=== PATIENT | female | born 1955 | race Caucasian/White ===

== ENCOUNTER 2019-02-17 08:05 | Emergency (ER) | payer OTHER ==
--- NOTE | 2019-02-17 08:31 | EDM.PDOC ---
ED HPI GENERAL MEDICAL PROBLEM - General Chief Complaint: Lower Extremity Injury/Pain Stated Complaint: POSSIBLE BROKEN TOE/FOOT Time Seen by Provider: 02/17/19 08:28 Source of Information: Reports: Patient History Limitations: Reports: No Limitations - History of Present Illness INITIAL COMMENTS - FREE TEXT/NARRATIVE: pt injured her left foot 2 days ago and she is having persistent pain. She does not recall exactly how she injured the foot. 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: Reports: - Infectious Disease History Infectious Disease History: Reports: Chicken Pox, Measles, Mumps Social & Family History - Tobacco Use Smoking Status *Q: Current Every Day Smoker Years of Tobacco use: 40 Packs/Tins Daily: 1 Used Tobacco, but Quit: No Second Hand Smoke Exposure: Yes - Caffeine Use Caffeine Use: Reports: Coffee, Tea - Alcohol Use Days Per Week of Alcohol Use: 7 Number of Drinks Per Day: 4 Total Drinks Per Week: 28 - Recreational Drug Use Recreational Drug Use: No Review of Systems - Review of Systems Review Of Systems: See Below Constitutional: Reports: No Symptoms Eyes: Reports: No Symptoms Ears: Reports: No Symptoms Nose: Reports: No Symptoms Mouth/Throat: Reports: No Symptoms Respiratory: Reports: No Symptoms Cardiovascular: Reports: No Symptoms GI/Abdominal: Reports: No Symptoms Musculoskeletal: Reports: Other (pt has pain in the left foot by the 4th and 5th toes. She has some discoloration. She states it is like needles under the toes. ) Skin: Reports: No Symptoms Neurological: Reports: No Symptoms ED EXAM, GENERAL - Physical Exam Exam: See Below Free Text/Narrative:: pt arrived with pain in the left foot by the 4th and 5th toe. She does not remember what she did. Exam Limited By: No Limitations General Appearance: Alert, Anxious, Mild Distress Extremities: Other (pt has slight discoloration in the 4th and 5th toes. She is feeling fairly uncomfortable and has missed 2 days of work. There is minimal swelling. Her xray reveals no fracture and does show evidence of arthritis. ) Psychiatric: Normal Affect Course - Vital Signs Last Recorded V/S: Last Vital Signs Temp 36.2 C 02/17/19 08:28 Pulse 82 02/17/19 08:28 Resp 16 02/17/19 08:28 BP 131/72 02/17/19 08:28 Pulse Ox 96 02/17/19 08:28 - Orders/Labs/Meds Orders: Active Orders 24 hr Category Date Time Status Acetaminophen/HYDROcodone [[place] 325-5 MG] Med 02/17/19 09:02 Once 1 tab PO ONETIME ONE - Re-Assessments/Exams Free Text/Narrative Re-Assessment/Exam: 02/17/19 09:13 pt arrived with pain in the left foot. She was given norco 5/325 q6h prn for pain. Departure - Departure Time of Disposition: 09:14 Disposition: Home, Self-Care 01 Condition: Fair Clinical Impression: Contusion of left foot - Discharge Information Referrals: PCP,None [Primary Care Provider] - Forms: ED Department Discharge Care Plan Goals: soak in warm water bid do range of motion of the toes, follow with a cool pack, elevate foot. Motrin 600mg q6h as needed for pain and inflamation. Pt will be off of work, February 16 and February 18. rtc if problems. - My Orders Last 24 Hours: My Active Orders 02/17/19 09:02 Acetaminophen/HYDROcodone [[place] 325-5 MG] 1 tab PO ONETIME ONE - Assessment/Plan Last 24 Hours: My Active Orders 02/17/19 09:02 Acetaminophen/HYDROcodone [[place] 325-5 MG] 1 tab PO ONETIME ONE
--- NOTE | 2019-02-17 08:54 | CRLCR ---
INDICATION: Pain in foot by 4th and 5th toes. TECHNIQUE: Three views left foot. FINDINGS: Mild irregularity and spurring along the plantar aspect of the calcaneus. Osteopenia. Mild degenerative arthritis left foot. Degenerative arthritis is greatest in the left 1st MTP joint. No obvious acute fracture or dislocation involving the left foot. Slight deformity of the left 3rd and 4th proximal phalanges the maybe related to congenital etiology or prior trauma. Soft tissue swelling left 4th and 5th digits. Remainder negative. Dictated by Christopher Tovar MD @ Feb 17 2019 8:51AM Signed by Dr. Christopher Tovar @ Feb 17 2019 8:52AM
[2019-02-17] MEDS ORDERED: Acetaminophen/HYDROcodone 325-5 MG Tab PO ONE (09:02)
== END 2019-02-17 09:24 | disposition home or self-care (01) ==
LOC: JP.ED 08:05
DX: S90.32XA Contusion of left foot, initial encounter (principal); X58.XXXA Exposure to other specified factors, initial encounter; F17.210 Nicotine dependence, cigarettes, uncomplicated
CPT/HCPCS: 73630; 99283; A9270